=== PATIENT | male | born 1970 | race African-American/Black ===

== ENCOUNTER 2018-01-28 17:35 | Inpatient (IN) | payer SELFPAY ==
[~2018-01-28] VITALS: Ht 175.3 cm; Wt 75.3 kg
[2018-01-28] MEDS ORDERED: ASPIRIN 81MG TABLET PO ONE (18:00)
[2018-01-28] MEDS ORDERED: NITROGLYCERIN OINT 1GM/INCH UDPKT TD ONE (18:00)
[2018-01-28] MEDS ORDERED: HYDRALAZINE 20MG/ML VIAL IV ONE (18:15)
[2018-01-28 18:51] LABS: BASOPHILS % 1.3 % (0.0-2.0); EOSINOPHILS % 3.8 % (0.0-5.0); HEMATOCRIT. 33.7 % (42.0-52.0); HEMOGLOBIN. 11.4 g/dL (14.0-18.0); LYMPHOCYTES % 13.3 % (20.0-50.0); MEAN CORPUSCULAR HEMOGLOBIN 32.7 pg (28.0-32.0); MEAN CORPUSCULAR VOLUME 96.5 fL (80.0-94.0); MEAN PLATELET VOLUME 7.2 fl (7.4-10.4); MONOCYTES % 8.2 % (2.0-8.0); NEUTROPHILS % 73.4 % (40.0-76.0); PLATELET 287 x1000/uL (130-400); RED BLOOD CELL COUNT 3.49 mill/uL (4.7-6.1); RED CELL DISTRIBUTION WIDTH 13.3 % (11.6-14.6)
[2018-01-28 19:00] LABS: CHLORIDE 108 mEq/L (98-107)
[2018-01-28 19:01] LABS: PARTIAL THROMBOPLASTIN TIME 26.4 sec (23.4-31.0); PROTHROMBIN TIME 10.4 sec (9.1-11.1)
[2018-01-28 20:48] LABS: BG BASE EXCESS -3.2 mmol/L (-2.0-2.0); BG CARBOXYHEMOGLOBIN 0.1 % (0.5-1.5); BG FRACTION INSPIRED OXYGEN 40; BG HCO3 ACT 21.5 mmol/L (22.0-26.0); BG METHEMOGLOBIN 0.4 % (0.0-1.5); BG OXYHEMOGLOBIN 98.5 % (94.0-97.0); BG PCO2 37.2 mmHg (35.0-45.0); BG PO2 172.5 mmHg (75.0-100.0); BG SAMPLE SITE LEFT RADIAL; BG TOTAL HEMOGLOBIN 11.7 g/dL (12.0-18.0); BG VENT MODE MASK - BIPAP; BG VENT RATE 15 set
[2018-01-28] MEDS ORDERED: GUAIFENESIN 200MG/10ML SUGAR FREE UDC PO PRN (21:00)
[2018-01-28] MEDS ORDERED: ACETAMINOPHEN 650MG SUPP PR PRN (21:00)
[2018-01-28] MEDS ORDERED: DIPHENHYDRAMINE 50MG/ML VIAL IV PRN (21:00)
[2018-01-28] MEDS ORDERED: HYDROCODONE/ACETAMINOPHEN 5/325MG TABLET PO PRN (21:00)
[2018-01-28] MEDS ORDERED: DOCUSATE SODIUM 100MG CAPSULE PO PRN (21:00)
[2018-01-28] MEDS ORDERED: IPRATROPIUM/ALBUTEROL 0.5-3(2.5)MG/3ML NEB INH PRN (21:00)
[2018-01-28] MEDS ORDERED: ACETAMINOPHEN 650MG/20.3ML UDC GT PRN (21:00)
[2018-01-28] MEDS ORDERED: ONDANSETRON HCL 4MG/2ML INJ IV PRN (21:00)
[2018-01-28] MEDS: CLONIDINE 0.1MG TABLET PO PRN ×2 (21:52→22:03)
[2018-01-28] MEDS: SODIUM CHLORIDE 0.9% INJ 3ML FLUSH IVF SCH (22:00)
[2018-01-28] MEDS ORDERED: FUROSEMIDE 40MG/4ML VIAL IV NR (22:15)
[2018-01-28 23:36] VITALS: BP 176/118
[2018-01-29] VITALS (21 sets, daily range): BP systolic 146–194; BP diastolic 91–132
[2018-01-29] MEDS ORDERED: FURO-151 PO (05:03)
[2018-01-29] MEDS ORDERED: HYDR-4135 PO (05:03)
[2018-01-29] MEDS ORDERED: ATOR80TA PO (05:03)
[2018-01-29] MEDS ORDERED: NIFE90TA34 PO (05:03)
[2018-01-29] MEDS ORDERED: HYDRALAZINE HCL 50MG TABLET PO SCH (06:00)
[2018-01-29] MEDS: SODIUM CHLORIDE 0.9% INJ 3ML FLUSH IVF SCH ×3 (06:00→20:51)
[2018-01-29] MEDS: CLONIDINE 0.1MG TABLET PO PRN ×2 (06:31→10:56)
[2018-01-29] MEDS: ACETAMINOPHEN 325MG TABLET PO PRN ×2 (06:32→10:55)
[2018-01-29 07:14] LABS: CLARITY URINE CLEAR (CLEAR); COLOR URINE GREEN (YELLOW); KETONES URINE NEGATIVE (NEGATIVE); LEUKOCYTE ESTERASE URINE NEGATIVE (NEGATIVE); NITRITE URINE NEGATIVE (NEGATIVE); OCCULT BLOOD URINE NEGATIVE (NEGATIVE); PROTEIN URINE 2+ (NEGATIVE); SPECIFIC GRAVITY URINE 1.007 (1.005-1.030); UROBILINOGEN URINE 0.2 E.U./dL (0.2-1.0)
[2018-01-29 07:36] LABS: HEMATOCRIT. 29.4 % (42.0-52.0); MEAN CORPUSCULAR HEMOGLOBIN 32.9 pg (28.0-32.0); MEAN CORPUSCULAR VOLUME 96.3 fL (80.0-94.0); MEAN PLATELET VOLUME 7.4 fl (7.4-10.4); PLATELET 258 x1000/uL (130-400); RED BLOOD CELL COUNT 3.05 mill/uL (4.7-6.1); RED CELL DISTRIBUTION WIDTH 13.1 % (11.6-14.6)
[2018-01-29 07:52] LABS: *AMPHETAMINES SCREEN URINE NEGATIVE (NEGATIVE); *BARBITURATES SCREEN URINE NEGATIVE (NEGATIVE); *COCAINE SCREEN URINE NEGATIVE (NEGATIVE)
[2018-01-29 07:53] LABS: *BENZODIAZEPINES SCREEN URINE NEGATIVE (NEGATIVE); CANNABINOID URINE SCREEN PRESUMTIVE POSITIVE (NEGATIVE); OPIATES URINE SCREEN NEGATIVE (NEGATIVE); PHENCYCLIDINE URINE SCREEN NEGATIVE (NEGATIVE)
[2018-01-29 08:02] LABS: METHADONE URINE SCREEN NEGATIVE (NEGATIVE)
[2018-01-29 08:19] LABS: BASOPHILS % 0.9 % (0.0-2.0); EOSINOPHILS % 2.8 % (0.0-5.0); LYMPHOCYTES % 11.8 % (20.0-50.0); MONOCYTES % 11.2 % (2.0-8.0); NEUTROPHILS % 73.3 % (40.0-76.0)
[2018-01-29] MEDS: FOLIC ACID/VITAMIN B COMP W-C TABLET PO SCH (08:45)
[2018-01-29] MEDS: CALCIUM ACETATE 667MG CAPSULE PO SCH ×3 (08:45→17:52)
[2018-01-29] MEDS: NIFEDIPINE XL 60MG TAB PO SCH ×2 (08:46→20:50)
[2018-01-29 09:57] LABS: CHLORIDE 105 mEq/L (98-107)
[2018-01-29 10:44] LABS: CREATINE KINASE 213 IU/L (39-308)
[2018-01-29 10:46] LABS: LDL CHOLESTEROL 106 mg/dL (5-100)
[2018-01-29 10:47] LABS: HDL CHOLESTEROL 44 mg/dL (40-59)
[2018-01-29 10:53] LABS: CREATINE KINASE MB FRACTION 1.7 ng/mL (0.5-3.6)
[2018-01-29 17:13] LABS: CREATINE KINASE MB FRACTION 1.3 ng/mL (0.5-3.6)
[2018-01-29] MEDS: HYDRALAZINE HCL 25MG TABLET PO SCH (20:50)
[2018-01-30] VITALS (13 sets, daily range): BP systolic 144–190; BP diastolic 78–102
[2018-01-30] MEDS: SODIUM CHLORIDE 0.9% INJ 3ML FLUSH IVF SCH ×3 (05:54→22:00)
[2018-01-30 07:00] LABS: BASOPHILS % 1.3 % (0.0-2.0); EOSINOPHILS % 4.1 % (0.0-5.0); HEMATOCRIT. 29.9 % (42.0-52.0); HEMOGLOBIN. 10.2 g/dL (14.0-18.0); LYMPHOCYTES % 13.2 % (20.0-50.0); MEAN CORPUSCULAR HEMOGLOBIN 33.1 pg (28.0-32.0); MEAN CORPUSCULAR VOLUME 96.6 fL (80.0-94.0); MEAN PLATELET VOLUME 7.6 fl (7.4-10.4); MONOCYTES % 10.5 % (2.0-8.0); NEUTROPHILS % 70.9 % (40.0-76.0); PLATELET 261 x1000/uL (130-400); RED CELL DISTRIBUTION WIDTH 13.4 % (11.6-14.6)
[2018-01-30 07:24] LABS: HEPATITIS B SURFACE AB 3.3 mIU/mL; PHOSPHORUS 2.8 mg/dL (2.5-4.9)
[2018-01-30 07:34] LABS: HEPATITIS B SURFACE ANTIGEN NEGATIVE
[2018-01-30] MEDS: HYDRALAZINE HCL 25MG TABLET PO SCH ×2 (08:15→21:12)
[2018-01-30] MEDS: FOLIC ACID/VITAMIN B COMP W-C TABLET PO SCH (08:16)
[2018-01-30] MEDS: NIFEDIPINE XL 60MG TAB PO SCH ×2 (08:16→21:12)
[2018-01-30] MEDS: CALCIUM ACETATE 667MG CAPSULE PO SCH ×3 (08:16→17:20)
[2018-01-30] MEDS: CLONIDINE 0.1MG TABLET PO PRN ×2 (17:24→23:27)
[2018-01-31] VITALS (18 sets, daily range): BP systolic 151–174; BP diastolic 91–113
[2018-01-31 07:02] LABS: BASOPHILS % 1.2 % (0.0-2.0); EOSINOPHILS % 5.4 % (0.0-5.0); HEMOGLOBIN. 10.7 g/dL (14.0-18.0); LYMPHOCYTES % 14.1 % (20.0-50.0); MEAN CORPUSCULAR HEMOGLOBIN 33.4 pg (28.0-32.0); MEAN CORPUSCULAR VOLUME 96.5 fL (80.0-94.0); MEAN PLATELET VOLUME 7.1 fl (7.4-10.4); MONOCYTES % 9.5 % (2.0-8.0); NEUTROPHILS % 69.8 % (40.0-76.0); PLATELET 259 x1000/uL (130-400); RED BLOOD CELL COUNT 3.21 mill/uL (4.7-6.1); RED CELL DISTRIBUTION WIDTH 13.5 % (11.6-14.6)
[2018-01-31 07:16] LABS: PHOSPHORUS 3.1 mg/dL (2.5-4.9)
[2018-01-31] MEDS: CALCIUM ACETATE 667MG CAPSULE PO SCH ×3 (08:00→18:03)
[2018-01-31] MEDS: HYDRALAZINE HCL 25MG TABLET PO SCH ×3 (09:00→20:59)
[2018-01-31] MEDS: NIFEDIPINE XL 60MG TAB PO SCH ×3 (09:00→20:59)
[2018-01-31] MEDS: FOLIC ACID/VITAMIN B COMP W-C TABLET PO SCH (09:00)
[2018-01-31] MEDS: SODIUM CHLORIDE 0.9% INJ 3ML FLUSH IVF SCH ×2 (14:00→21:01)
[2018-01-31] MEDS: CLONIDINE 0.1MG TABLET PO PRN (16:57)
[2018-02-01] VITALS (13 sets, daily range): BP systolic 136–174; BP diastolic 81–113
[2018-02-01] MEDS: SODIUM CHLORIDE 0.9% INJ 3ML FLUSH IVF SCH ×3 (06:00→21:19)
[2018-02-01] MEDS: HYDRALAZINE HCL 25MG TABLET PO SCH ×2 (08:39→21:20)
[2018-02-01] MEDS: CALCIUM ACETATE 667MG CAPSULE PO SCH ×3 (08:39→17:36)
[2018-02-01] MEDS: FOLIC ACID/VITAMIN B COMP W-C TABLET PO SCH (08:40)
[2018-02-01] MEDS: NIFEDIPINE XL 60MG TAB PO SCH ×2 (08:40→21:20)
[2018-02-01 10:46] LABS: BASOPHILS % 1.1 % (0.0-2.0); EOSINOPHILS % 5.2 % (0.0-5.0); HEMATOCRIT. 33.7 % (42.0-52.0); HEMOGLOBIN. 11.6 g/dL (14.0-18.0); LYMPHOCYTES % 13.5 % (20.0-50.0); MEAN CORPUSCULAR HEMOGLOBIN 32.8 pg (28.0-32.0); MEAN CORPUSCULAR VOLUME 95.5 fL (80.0-94.0); MEAN PLATELET VOLUME 7.5 fl (7.4-10.4); MONOCYTES % 10.2 % (2.0-8.0); PLATELET 269 x1000/uL (130-400); RED BLOOD CELL COUNT 3.53 mill/uL (4.7-6.1)
[2018-02-01 12:28] LABS: PHOSPHORUS 2.9 mg/dL (2.5-4.9)
[2018-02-02] VITALS (9 sets, daily range): BP systolic 151–179; BP diastolic 84–104
[2018-02-02] MEDS: SODIUM CHLORIDE 0.9% INJ 3ML FLUSH IVF SCH ×2 (06:49→12:45)
[2018-02-02 07:37] LABS: BASOPHILS % 1.3 % (0.0-2.0); EOSINOPHILS % 4.1 % (0.0-5.0); HEMATOCRIT. 34.1 % (42.0-52.0); HEMOGLOBIN. 11.4 g/dL (14.0-18.0); LYMPHOCYTES % 14.2 % (20.0-50.0); MEAN CORPUSCULAR HEMOGLOBIN 32.2 pg (28.0-32.0); MEAN CORPUSCULAR VOLUME 96.6 fL (80.0-94.0); MEAN PLATELET VOLUME 7.3 fl (7.4-10.4); MONOCYTES % 11.5 % (2.0-8.0); NEUTROPHILS % 68.9 % (40.0-76.0); PLATELET 296 x1000/uL (130-400); RED BLOOD CELL COUNT 3.54 mill/uL (4.7-6.1); RED CELL DISTRIBUTION WIDTH 13.1 % (11.6-14.6)
[2018-02-02 07:42] LABS: PHOSPHORUS 4.1 mg/dL (2.5-4.9)
[2018-02-02] MEDS: HYDRALAZINE HCL 25MG TABLET PO SCH (08:12)
[2018-02-02] MEDS: FOLIC ACID/VITAMIN B COMP W-C TABLET PO SCH (08:12)
[2018-02-02] MEDS: CALCIUM ACETATE 667MG CAPSULE PO SCH ×2 (08:12→12:45)
[2018-02-02] MEDS: NIFEDIPINE XL 60MG TAB PO SCH (08:13)
[2018-02-02] MEDS ORDERED: HYDR-4134 PO (11:30)
[2018-02-02] MEDS ORDERED: CALC667C PO (11:30)
[2018-02-02] MEDS ORDERED: COR6 PO (11:30)
[2018-02-02] MEDS ORDERED: NIFE60TA64 PO (11:30)
[2018-02-02] MEDS ORDERED: CARVEDILOL 6.25 MG TABLET PO SCH (21:00)
== END 2018-02-02 16:00 | disposition home or self-care (01) | DRG 133 ==
LOC: EDBEDREQ 18:23 → EDBEDREQSVC 18:23 → ER 19:02 → 5EST 20:03 → EDBEDREQTM 20:05 → EDBEDREQ 20:05 → ENRESERV 20:18
PROVIDERS: ADMIT Family Medicine; ATTEND Family Medicine
PROC: 5A1D70Z Performance of Urinary Filtration, Intermittent, Less than 6 Hours Per Day (ICD-10-PCS; principal; 2018-01-28)
PROC: 5A09357 Assistance with Respiratory Ventilation, Less than 24 Consecutive Hours, Continuous Positive Airway Pressure (ICD-10-PCS; 2018-01-28)
PROC: 5A1D70Z Performance of Urinary Filtration, Intermittent, Less than 6 Hours Per Day (ICD-10-PCS; 2018-01-29)
PROC: 5A1D70Z Performance of Urinary Filtration, Intermittent, Less than 6 Hours Per Day (ICD-10-PCS; 2018-01-31)
DX: J96.01 Acute respiratory failure with hypoxia (principal); I13.2 Hypertensive heart and chronic kidney disease with heart failure and with stage 5 chronic kidney disease, or end stage renal disease; I42.9 Cardiomyopathy, unspecified; N18.6 End stage renal disease; E44.1 Mild protein-calorie malnutrition; E83.51 Hypocalcemia; R74.8 Abnormal levels of other serum enzymes; N25.81 Secondary hyperparathyroidism of renal origin; D63.8 Anemia in other chronic diseases classified elsewhere; F12.90 Cannabis use, unspecified, uncomplicated; I50.9 Heart failure, unspecified; Z82.49 Family history of ischemic heart disease and other diseases of the circulatory system; Z82.3 Family history of stroke; Z83.3 Family history of diabetes mellitus; Z91.14 Patient's other noncompliance with medication regimen; Z99.2 Dependence on renal dialysis; Z68.24 Body mass index [BMI] 24.0-24.9, adult
CPT/HCPCS: 36415; 36600; 71045; 80048; 80061; 80305; 82375; 82550; 82553; 82805; 83735; 83880; 83970; 84100; 84484; 86705; 86706; 86803; 87340; 93005; 93306; 93970; 94660; 96374; 99291; J0360; J1940; J7030